=== PATIENT | female | born 1940 | race Caucasian/White ===

== ENCOUNTER 2019-10-01 21:43 | Inpatient (IN) | payer MEDICARE, MEDICAID ==
[~2019-10-01] VITALS: Ht 160 cm; Wt 61.2 kg
[2019-10-01] MEDS ORDERED: VISTARIL50 MG PO (23:53)
[2019-10-01] MEDS ORDERED: CYMBALTA30 MG PO (23:54)
[2019-10-01] MEDS ORDERED: REMERON15 M2 PO (23:55)
[2019-10-01] MEDS ORDERED: ARICEPT10 M1 PO (23:55)
[2019-10-01] MEDS ORDERED: Kenalog 0.5% Cr15 GM T (23:57)
[2019-10-01] MEDS ORDERED: PAIN & FEVER R325 MG PO (23:58)
[2019-10-02] MEDS ORDERED: REPLESTA50000 UNIT PO (00:02)
[2019-10-02] MEDS ORDERED: B121000 MCG/2 IM (00:04)
[2019-10-02] MEDS ORDERED: DEPAKOTE250 MG PO (00:05)
[2019-10-02] MEDS ORDERED: DEPAKOTE DR500 MG PO (00:06)
[2019-10-02] MEDS ORDERED: MILK OF MA400 MG/51 PO (02:55)
[2019-10-02 12:37] VITALS: BP 136/96
[2019-10-02 13:05] VITALS: BP 136/96
[2019-10-02 20:00] VITALS: BP 125/83
[2019-10-03 06:49] LABS: BASO # 0.1 10*3/uL (0.0-0.1); BASO % 0.8 % (0.0-1.0); EOS # 0.2 10*3/uL (0.0-0.4); EOS % 2.1 % (1.0-4.0); HEMATOCRIT 43.9 % (37.0-47.0); HEMOGLOBIN 14.5 g/dl (12.0-16.0); LYMPH # 2.7 10*3/uL (1.3-4.4); LYMPH % 30.4 % (27.0-41.0); MEAN PLATELET VOLUME 10.4 fl (9.6-12.3); MONO # 0.9 10*3/uL (0.1-1.0); NEUT # 5.1 10*3/uL (2.3-7.9); NEUT % 56.1 % (47.0-73.0); PLATELET COUNT AUTOMATED 320 10*3/uL (130-400); RED BLOOD COUNT 4.67 10*6/uL (4.10-5.10)
[2019-10-03 07:03] LABS: ALBUMIN 3.2 gm/dl (3.1-4.5); ALKALINE PHOSPHATASE 97 U/L (45-117); BUN 10 mg/dl (7-24); CHLORIDE 105 mmol/L (98-107); CHOLESTEROL 241 mg/dL (<200); CREATININE 0.76 mg/dL (0.55-1.02); HDL CHOLESTEROL 46 mg/dl (40-60); LDL CHOLESTEROL 152 mg/dL (9-159); POTASSIUM 3.5 mmol/L (3.5-5.1); SGOT/AST 20 IU/L (3-35); SGPT/ALT 34 U/L (12-78); SODIUM 141 mmol/L (136-145); TOTAL PROTEIN 6.9 gm/dL (6.4-8.2); TRIGLYCERIDES 216 mg/dl (<150); VLDL CHOLESTEROL 43 mg/dL (6-40)
[2019-10-03 07:41] LABS: VITAMIN D, 25-HYDROXY 29.2 ng/mL (30-100)
[2019-10-03 08:00] VITALS: BP 137/67
[2019-10-03 10:22] VITALS: BP 115/91
[2019-10-03 20:00] VITALS: BP 137/98
[2019-10-04 10:11] LABS: BASO # 0.1 10*3/uL (0.0-0.1); BASO % 0.7 % (0.0-1.0); EOS # 0.4 10*3/uL (0.0-0.4); EOS % 3.3 % (1.0-4.0); HEMATOCRIT 42.8 % (37.0-47.0); LYMPH # 3.4 10*3/uL (1.3-4.4); LYMPH % 32.1 % (27.0-41.0); MEAN CELL VOLUME 92.6 fl (81.0-99.0); MEAN CORPUSCULAR HGB 30.3 pg (27.0-31.0); MEAN CORPUSCULAR HGB CONC 32.7 g/dl (33.0-37.0); MONO # 1.1 10*3/uL (0.1-1.0); NEUT # 5.6 10*3/uL (2.3-7.9); NEUT % 53.4 % (47.0-73.0); PLATELET COUNT AUTOMATED 308 10*3/uL (130-400); RED BLOOD COUNT 4.62 10*6/uL (4.10-5.10); WHITE BLOOD COUNT 10.5 10*3/uL (4.8-10.8)
[2019-10-04 10:25] LABS: BUN 15 mg/dl (7-24); CHLORIDE 104 mmol/L (98-107); CREATININE 0.62 mg/dL (0.55-1.02); SODIUM 140 mmol/L (136-145)
[2019-10-04 19:44] VITALS: BP 113/65
[2019-10-05 10:21] VITALS: BP 133/83
[2019-10-05 19:46] VITALS: BP 153/66
[2019-10-06 09:29] VITALS: BP 110/70
[2019-10-06 19:34] VITALS: BP 100/62
[2019-10-07 07:46] VITALS: BP 116/61
[2019-10-07 20:00] VITALS: BP 115/75
[2019-10-08 07:48] VITALS: BP 126/81
[2019-10-08 19:54] VITALS: BP 137/90
[2019-10-09 08:00] VITALS: BP 150/88
[2019-10-09 20:00] VITALS: BP 114/77
[2019-10-10 07:53] VITALS: BP 111/62
[2019-10-10 20:00] VITALS: BP 115/67
[2019-10-11 08:00] VITALS: BP 121/73
[2019-10-11 19:50] VITALS: BP 130/63
[2019-10-12 08:00] VITALS: BP 129/78
[2019-10-12 20:00] VITALS: BP 125/87
[2019-10-13 07:33] VITALS: BP 130/68
[2019-10-13 19:43] VITALS: BP 132/70
[2019-10-14 08:05] VITALS: BP 133/83
[2019-10-14 20:00] VITALS: BP 115/60
[2019-10-15 08:00] VITALS: BP 121/80
[2019-10-15 19:47] VITALS: BP 130/64
[2019-10-16 08:00] VITALS: BP 119/68
[2019-10-16 20:00] VITALS: BP 116/67
[2019-10-17 07:32] VITALS: BP 114/71
[2019-10-17 20:00] VITALS: BP 124/72
[2019-10-18 07:46] VITALS: BP 120/75
[2019-10-18 19:46] VITALS: BP 139/79
[2019-10-19 07:19] VITALS: BP 128/81
[2019-10-19 19:06] VITALS: BP 121/74
[2019-10-20 07:23] VITALS: BP 133/86
[2019-10-20] MEDS ORDERED: INVEGA SUSTENN156 MG IM (10:02)
[2019-10-20] MEDS ORDERED: EXELON13.3 MG/21 T (10:02)
[2019-10-20] MEDS ORDERED: MEMANTINE HCL10 MG PO (10:02)
== END 2019-10-20 15:25 | disposition other institution (70) | DRG 883 ==
LOC: 3N 21:43
PROVIDERS: Internal Medicine; Registered Nurse; ADMIT Psychiatry & Neurology Psychiatry
DX: F63.81 Intermittent explosive disorder (principal); E87.2 Acidosis; F02.81 Dementia in other diseases classified elsewhere, unspecified severity, with behavioral disturbance; L03.312 Cellulitis of back [any part except buttock and flank]; R73.9 Hyperglycemia, unspecified; R82.4 Acetonuria; F25.1 Schizoaffective disorder, depressive type; L40.9 Psoriasis, unspecified; D72.829 Elevated white blood cell count, unspecified; G30.9 Alzheimer's disease, unspecified; I10 Essential (primary) hypertension; K59.00 Constipation, unspecified; F41.1 Generalized anxiety disorder; R81 Glycosuria; R31.21 Asymptomatic microscopic hematuria; F32.9 Major depressive disorder, single episode, unspecified; Z79.899 Other long term (current) drug therapy

== ENCOUNTER 2019-10-02 08:57 | Emergency (ER) | payer MEDICARE, MEDICAID ==
[~2019-10-02] VITALS: Ht 160 cm; Wt 62.1 kg
[~2019-10-02 08:57] MED LIST: ARICEPT10 M1 PO; B121000 MCG/2 IM; CYMBALTA30 MG PO; DEPAKOTE DR500 MG PO; DEPAKOTE250 MG PO; Kenalog 0.5% Cr15 GM T; MILK OF MA400 MG/51 PO; PAIN & FEVER R325 MG PO; REMERON15 M2 PO; REPLESTA50000 UNIT PO; VISTARIL50 MG PO
[2019-10-02 10:41] LABS: BASO # 0.1 10*3/uL (0.0-0.1); BASO % 0.5 % (0.0-1.0); EOS % 0.3 % (1.0-4.0); HEMATOCRIT 45.7 % (37.0-47.0); HEMOGLOBIN 15.2 g/dl (12.0-16.0); LYMPH # 1.7 10*3/uL (1.3-4.4); LYMPH % 14.4 % (27.0-41.0); MEAN CELL VOLUME 93.6 fl (81.0-99.0); MEAN CORPUSCULAR HGB 31.1 pg (27.0-31.0); MEAN CORPUSCULAR HGB CONC 33.3 g/dl (33.0-37.0); MEAN PLATELET VOLUME 10.5 fl (9.6-12.3); MONO # 0.9 10*3/uL (0.1-1.0); MONO % 7.8 % (3.0-9.0); NEUT % 76.3 % (47.0-73.0); PLATELET COUNT AUTOMATED 256 10*3/uL (130-400); RED BLOOD COUNT 4.88 10*6/uL (4.10-5.10); RED CELL DISTRI WIDTH 11.9 % (0-14.5); WHITE BLOOD COUNT 11.8 10*3/uL (4.8-10.8)
[2019-10-02 10:59] LABS: ALBUMIN 3.2 gm/dl (3.1-4.5); ALKALINE PHOSPHATASE 102 U/L (45-117); BUN 13 mg/dl (7-24); CHLORIDE 105 mmol/L (98-107); CREATININE 0.79 mg/dL (0.55-1.02); LIPASE 83 U/L (73-393); POTASSIUM 3.8 mmol/L (3.5-5.1); SGOT/AST 32 IU/L (3-35); SGPT/ALT 40 U/L (12-78); SODIUM 139 mmol/L (136-145); TOTAL PROTEIN 7.3 gm/dL (6.4-8.2)
[2019-10-02 11:00] LABS: ACETAMINOPHEN (TYLENOL) < 5.0 ug/ml (10-30); ETHYL ALCOHOL < 3.0 mg/dl (<3); TROPONIN I < 0.015 ng/ml (<0.045)
[2019-10-02 11:05] LABS: CLARITY CLOUDY (CLEAR); COLOR YELLOW (YELLOW)
[2019-10-02 11:06] LABS: BILIRUBIN NEGATIVE (NEGATIVE); BLOOD 2+ (NEGATIVE); GLUCOSE 3+ (NEGATIVE); KETONE 3+ (NEGATIVE); LEUKO ESTERASE NEGATIVE (NEGATIVE); NITRITE NEGATIVE (NEGATIVE); SPECIFIC GRAVITY 1.025 (1.005-1.030); URINE AMPHETAMINES < 1000 (1000ng/ml); URINE BARBITURATES < 200 (200ng/ml); URINE BENZODIAZEPINES < 200 (200ng/ml); URINE CANNABINOIDS (THC) < 50 (50ng/ml); URINE COCAINE < 300 (300ng/ml); URINE METHADONE < 300 (300ng/ml); URINE OPIATES < 300 (300ng/ml); UROBILINOGEN 0.2 E.U./dl (0.2-1.0)
[2019-10-02 11:08] LABS: BACTERIA 3+; RBC 21-30 rbc/hpf (0-2)
[2019-10-02 11:11] LABS: URINE PHENCYCLIDINE < 25 (25ng/ml)
== END 2019-10-02 11:47 | disposition other institution (70) ==
LOC: ED 08:57
PROVIDERS: Nurse Practitioner Family
DX: F63.81 Intermittent explosive disorder (principal); R82.71 Bacteriuria; E86.0 Dehydration; I10 Essential (primary) hypertension; F03.90 Unspecified dementia, unspecified severity, without behavioral disturbance, psychotic disturbance, mood disturbance, and anxiety; F32.9 Major depressive disorder, single episode, unspecified; F25.9 Schizoaffective disorder, unspecified; Z79.899 Other long term (current) drug therapy; Z87.891 Personal history of nicotine dependence